=== PATIENT | male | born 1975 | race Caucasian/White ===

== ENCOUNTER 2021-03-14 14:56 | Emergency (ER) | payer BC, OTHER, SELFPAY ==
[~2021-03-14] VITALS: Ht 172.7 cm; Wt 72.2 kg
[2021-03-14 14:56] VITALS: BP 158/91
[2021-03-14] MEDS ORDERED: RAMI1CAP24 (15:04)
[2021-03-14] MEDS ORDERED: IBUP-1022 PO (15:04)
[2021-03-14] MEDS ORDERED: CIPR500T39 (15:04)
[2021-03-14] MEDS ORDERED: BUSP5TA (15:04)
== END 2021-03-14 15:48 | disposition left against medical advice (07) ==
LOC: M ED 14:56
DX: Z53.21 Procedure and treatment not carried out due to patient leaving prior to being seen by health care provider (principal)

== ENCOUNTER 2024-03-27 14:26 | Emergency (ER) | payer OTHER ==
[~2024-03-27] VITALS: Ht 172.7 cm; Wt 70.0 kg
[~2024-03-27 14:26] MED LIST: BUSP5TA; CIPR500T39; IBUP-1022 PO; RAMI5CAP60
[2024-03-27] MEDS ORDERED: ESCITALOPRAM (14:58)
[2024-03-27] MEDS ORDERED: TRAZ-189 (14:58)
[2024-03-27] MEDS ORDERED: CLON-412 (14:58)
[2024-03-27] MEDS ORDERED: HYDR50CA2 (14:58)
[2024-03-27] MEDS ORDERED: FAMO40TA3 (14:58)
[2024-03-27] MEDS ORDERED: ONDA-83 (14:58)
[2024-03-27] MEDS ORDERED: SUCR1TAB56 (14:58)
[2024-03-27 15:58] LABS: BASO % 0.4 % (0.0-1.0); EOS # 0.1 10^3/uL (0.0-0.5); EOS % 0.9 % (0.0-3.0); HEMATOCRIT 40.8 % (42.0-52.0); HEMOGLOBIN 13.6 g/dl (13.5-17.5); LYMPH # 1.2 10^3/uL (1.5-5.0); LYMPH % 14.6 % (24.0-44.0); MEAN CORPUSCULAR HEMOGLOBIN 31.6 pg (27.0-33.0); MEAN CORPUSCULAR HGB CONC 33.3 g/dl (32.0-36.5); MEAN CORPUSCULAR VOLUME 94.9 fl (80.0-96.0); MONO # 0.5 10^3/uL (0.0-0.8); NEUTROPHILS # 6.6 10^3/uL (1.5-8.5); NEUTROPHILS % 77.7 % (36.0-66.0); PLATELET COUNT, AUTOMATED 203 10^3/uL (150-450); WHITE BLOOD COUNT 8.5 10^3/uL (4.0-10.0)
[2024-03-27 16:13] LABS: PARTIAL THROMBOPLASTIN TIME 26.2 SECONDS (24.8-34.2); PROTHROMBIN TIME 13.5 SECONDS (12.5-14.5)
[2024-03-27 16:27] LABS: BLOOD UREA NITROGEN 13 MG/DL (9-23); CALCIUM LEVEL 8.4 MG/DL (8.5-10.1); CARBON DIOXIDE LEVEL 29 MMOL/L (20-31); CHLORIDE LEVEL 102 MMOL/L (98-107); CREATININE FOR GFR 0.78 MG/DL (0.70-1.30); GLOMERULAR FILTRATION RATE > 60.0 (>60); GLUCOSE, FASTING 111 MG/DL (60-100); SODIUM LEVEL 139 MMOL/L (136-145)
[2024-03-27 17:39] VITALS: BP 143/93; TEMP 98.3; O2SAT 99
[2024-03-27] MEDS: ACETAMINOPHEN 500 MG TAB PO ONE (20:40)
[2024-03-27] MEDS: APIXABAN 5 MG TAB (ELIQUIS) PO ONE (20:40)
[2024-03-27] MEDS ORDERED: ELIQ5TAB PO (20:42)
[2024-03-31 23:27] LABS: CARDIOLIPIN IGA ANTIBODY < 2.0 APL-U/mL (<20.0); CARDIOLIPIN IGG ANTIBODY < 2.0 GPL-U/mL (<20.0); CARDIOLIPIN IGM ANTIBODY < 2.0 MPL-U/mL (<20.0)
[2024-04-01 03:21] LABS: ANTI THROMBIN 3 ANTIGEN IMMUNO 105 % normal (80-120); ANTI THROMBIN 3 FUNCT ACTIVITY 114 % normal (80-135)
== END 2024-03-27 21:15 | disposition home or self-care (01) ==
LOC: M ED 14:26
DX: I82.451 Acute embolism and thrombosis of right peroneal vein (principal); I10 Essential (primary) hypertension; F41.9 Anxiety disorder, unspecified; Z88.0 Allergy status to penicillin; Z88.1 Allergy status to other antibiotic agents; Z88.8 Allergy status to other drugs, medicaments and biological substances; Z79.01 Long term (current) use of anticoagulants; Z79.899 Other long term (current) drug therapy

== ENCOUNTER → 2024-06-02 | Outpatient (CLI) | payer OTHER ==
[~2024-06-02] MED LIST changes: +CLON-412; +ELIQ5TAB PO; +ESCITALOPRAM; +FAMO40TA3; +HYDR50CA2; +ONDA-83; +SUCR1TAB56; +TRAZ-189
== END ==
LOC: M RAD 14:28
PROVIDERS: ATTEND Nurse Practitioner Family
DX: I82.409 Acute embolism and thrombosis of unspecified deep veins of unspecified lower extremity (principal)